=== PATIENT | female | born 1950 | race African-American/Black ===

== ENCOUNTER 2016-08-14 18:49 | Emergency (ER) | payer OTHER, MEDICARE ==
[2016-08-14 18:57] VITALS: BMI 27.6
--- NOTE | 2016-08-14 19:38 | PDOC ---
History of Present Illness - General History Source: Patient Exam Limitations: No Limitations - History of Present Illness Initial Comments: 08/14/16 20:45 The patient is a 66 year old female with significant past medical history of diabetes who presents to the ED for left facial palsy that began earlier today. Patient reports positive sick contacts 2 days ago while she was visiting her PMD in his office. States the following day she noted some mild swelling near her left eye and her left eye became red, itchy, tearful and felt a burning sensation throughout the day. She also reports a mild headache. Patient reports today she developed left facial palsy and states the swelling near her left eye increased and she was unable to close her eyes. Denies loss of sensation, dizziness, blurry vision, or slurred speech. She also reports one episode of nausea and vomiting earlier this morning. The patient denies fever, chills, diaphoresis, cough, SOB, chest pain, palpitations, abdominal pain and diarrhea. Allergies: lactose, methylprednisolone acetate, sulfa, metronidazole HCl, levofloxacin Social History: No alcohol, tobacco, or drug use reported. Past Surgical History: cholecystectomy, bilateral rotator cuff sx PCP: Dr. Neel Fitzpatrick <Regla Rabago - Last Filed: 08/14/16 22:01> <Kaleigh Zimmerman - Last Filed: 08/15/16 04:45> - General Chief Complaint: Facial Droop Stated Complaint: LEFT FACE SWELLING Time Seen by Provider: 08/14/16 19:37 Past History <Regla Rabago - Last Filed: 08/14/16 22:01> - Past Medical History Anemia: No Asthma: No Cancer: No Cardiac Disorders: No CVA: No COPD: No CHF: No Dementia: No Diabetes: Yes Disorders: No HTN: No Hypercholesterolemia: No Liver Disease: No Suicide Attempt (Hx): No Seizures: No Thyroid Disease: No - Surgical History Cholecystectomy: Yes Orthopedic Surgery: Yes (Bilateral rotated cuff Sx, both feet) - Immunization History Td Vaccination: Yes Immunization Up to Date: Yes - Psycho/Social/Smoking Cessation Hx Anxiety: No Suicidal Ideation: No Smoking Status: No Smoking History: Never smoked Years of Tobacco Use: 0 Have you smoked in the past 12 months: No Number of Cigarettes Smoked Daily: 0 Cigars Per Day: 0 Hx Alcohol Use: No Drug/Substance Use Hx: No Substance Use Type: None Hx Substance Use Treatment: No <Kaleigh Zimmerman - Last Filed: 08/15/16 04:45> - Past Medical History Allergies/Adverse Reactions: Allergies Allergy/AdvReac Type Severity Reaction Status Date / Time lactose Allergy Mild Verified 08/14/16 18:54 methylprednisolone acetate Allergy Verified 08/14/16 18:54 [From Depo-Medrol] Sulfa (Sulfonamide Allergy Verified 08/14/16 18:54 Antibiotics) Metronidazole HCl AdvReac Mild Rash, Verified 08/14/16 18:54 [From Flagyl] itching levofloxacin [Levofloxacin] AdvReac Hives Verified 08/14/16 18:54 Home Medications: Ambulatory Orders Canagliflozin [Invokana] 100 mg PO DAILY 12/10/15 Dextran 70/Hypromellose [Artificial Tears Eye Drops] 1 applic OS Q3H6XD #15 ml 08/14/16 Prednisone [Deltasone -] 3 tab PO DAILY #15 tablet 08/14/16 Valacyclovir HCl [Valtrex] 1,000 mg PO TID #21 tablet 08/14/16 Review of Systems - Review of Systems Able to Perform ROS?: Yes Comments:: 08/14/16 20:45 CONSTITUTIONAL: Absent: fever, no chills, no fatigue EYES: +left eye swelling, redness, itchy and tearful Absent: visual changes ENT: Absent: ear pain, no sore throat CARDIOVASCULAR: Absent: chest pain, no palpitations RESPIRATORY: Absent: cough, no SOB GI: +nausea, vomiting Absent: abdominal pain, no constipation, no diarrhea GENITOURINARY: Absent: dysuria, no frequency, no hematuria MUSCULOSKELETAL: Absent: back pain, no arthralgia, no myalgia SKIN: Absent: rash NEURO: +left facial palsy, headache Absent: focal weakness, dizziness, unsteady gait, seizure, mental status changes, bladder or bowel incontinence <Regla Rabago - Last Filed: 08/14/16 22:01> *Physical Exam - Vital Signs Last Vital Signs Temp Pulse Resp BP Pulse Ox 98.5 F 79 20 178/83 100 08/14/16 18:50 08/14/16 18:50 08/14/16 18:50 08/14/16 18:50 08/14/16 18:50 - Physical Exam Comments: 08/14/16 22:01 GENERAL: Well-appearing, well-nourished. No apparent distress. HEENT: Normocephalic, atraumatic. PERRL, EOM intact. Left eye irritation secondary to the inability of closing the eye and rubbing CARDIOVASCULAR: Normal S1, S2. Regular rate and rhythm. PULMONARY: Clear to auscultation bilaterally. ABDOMEN: Soft, non-distended, non-tender. EXTREMITIES: Normal ROM in all four extremities. No gross deformities. SKIN: Warm, dry. No rash NEUROLOGICAL: Alert, awake, appropriate. Left-sided 7th facial nerve palsy. Remainder of the cranial nerves are intact. No loss of sensation. Normal speech. Moving all extremities. <Relga Rabago - Last Filed: 08/14/16 22:01> - Vital Signs Last Vital Signs Temp Pulse Resp BP Pulse Ox 98.5 F 79 20 178/83 100 08/14/16 18:50 08/14/16 18:50 08/14/16 18:50 08/14/16 18:50 08/14/16 18:50 <Kaleigh Zimmerman - Last Filed: 08/15/16 04:45> ED Treatment Course - LABORATORY CBC & Chemistry Diagram: 08/14/16 20:42 08/14/16 20:42 - RADIOLOGY Radiograph Interpretation: 08/14/16 21:21 EXAM: CT head without contrast Reviewed by Imaging assistant director of plant operations: FINDINGS: 1. There is no evidence of an acute intracranial process, intracranial hemorrhage or mass effect. 2. The ventricles are normal size. 3. The visualized portions of the orbits, paranasal and mastoid sinuses are unremarkable. <Regla Rabago - Last Filed: 08/14/16 22:01> - LABORATORY CBC & Chemistry Diagram: 08/14/16 20:42 08/14/16 20:42 <Kaleigh Zimmerman - Last Filed: 08/15/16 04:45> Medical Decision Making - Medical Decision Making 08/14/16 21:09 Patient Name: Crystal Alfred THIS IS A PRELIMINARY REPORT FROM [facility] EXAM: CT head without contrast IMAGES: 144 DATE OF SERVICE: 2016-08-14 20:21: 50.0 HISTORY:Facial droop COMPARISON: None. FINDINGS: 1. There is no evidence of an acute intracranial process, intracranial hemorrhage or mass effect. 2. The ventricles are normal size. 3. The visualized portions of the orbits, paranasal and mastoid sinuses are unremarkable. THIS DOCUMENT HAS BEEN ELECTRONICALLY SIGNED 08/15/16 04:41 Pt comes with facial droop that began today in the AM and patient comes tonight for evaluation. She has a headache. She is 66 YO. Exam consistent with a Burton palsy. However I will still get a CT head on account of the headache. Pt's CT is normal. Labs are normal. She will be treated with antivirals and artificail tears. She will follow with her PMD. 08/15/16 04:44 <Kaleigh Zimmerman - Last Filed: 08/15/16 04:45> *DC/Admit/Observation/Transfer - Attestations Scribe Attestion: 08/14/16 20:45 Documentation prepared by Regla Rabago, acting as medical payment poster for Kaleigh Zimmerman MD/DO. <Regla Rabago - Last Filed: 08/14/16 22:01> - Discharge Dispostion Admit: No <Kaleigh Zimmerman - Last Filed: 08/15/16 04:45> Diagnosis at time of Disposition: Quinonez palsy - Discharge Dispostion Disposition: HOME Condition at time of disposition: Stable - Prescriptions Prescriptions: Dextran 70/Hypromellose [Artificial Tears Eye Drops] 1 applic OS Q3H6XD #15 ml Prednisone [Deltasone -] 3 tab PO DAILY #15 tablet Valacyclovir HCl [Valtrex] 1,000 mg PO TID #21 tablet - Referrals Referrals: Neel Fitzpatrick MD [Primary Care Provider] - - Patient Instructions Printed Discharge Instructions: DI for Quinonez's Palsy
[2016-08-14] MEDS ORDERED: valACYclovir HCL 1000 MG TABLET PO ONE (20:28)
[2016-08-14] MEDS ORDERED: valACYclovir HCL 500 MG TABLET (FP) PO ONE (20:30)
[2016-08-14] MEDS ORDERED: predniSONE 20 MG TABLET (UD) PO ONE (20:43)
[2016-08-14] MEDS ORDERED: predniSONE 20 MG TABLET (UD) ONE (20:46)
[2016-08-14 20:50] LABS: BASOPHIL 0.3 % (0-2.0); EOSINOPHIL 1.8 % (0-4.5); MCH 31.8 pg (25.7-33.7); MEAN CELL VOLUME 93.5 fl (80-96); MEAN PLT VOLUME 8.5 fl (7.5-11.1); NEUTROPHILS 63.8 % (42.8-82.8); PLATELET COUNT 280 K/MM3 (134-434); RDW 13.1 % (11.6-15.6); WHITE BLOOD COUNT 8.8 K/mm3 (4.0-10.0)
[2016-08-14 21:04] LABS: INR 1.05 (0.82-1.09); PROTHROMBIN TIME (PATIENT) 11.6 SEC (9.98-11.88)
[2016-08-14 21:07] LABS: ACTIVATED PTT 36.7 SECONDS (26.9-34.4)
[2016-08-14 21:13] LABS: ALBUMIN 3.8 g/dl (3.4-5.0); ANION GAP 7 (8-16); BILIRUBIN,TOTAL 0.8 mg/dL (0.2-1.0); CALCIUM 8.6 mg/dL (8.5-10.1); CO2 30 mmol/L (21-32); CREATININE 0.7 mg/dL (0.55-1.02); GLUCOSE,RANDOM 165 mg/dL (74-106); SGOT/AST 19 U/L (15-37); SGPT/ALT 29 U/L (12-78); TOT PROT 6.8 g/dl (6.4-8.2)
[2016-08-14 21:14] LABS: ALK PHOS 73 U/L (45-117)
[2016-08-14] MEDS ORDERED: ACETAMINOPHEN 325 MG TABLET (FP) PO ONE (21:15)
[2016-08-14] MEDS ORDERED: ACETAMINOPHEN 325 MG TABLET (FP) ONE (21:36)
[2016-08-14 21:49] VITALS: BP 157/62; PULSE 67; TEMP 98
--- NOTE | 2016-08-15 13:32 | EKG ---
Test Reason : Blood Pressure : / mmHG Vent. Rate : 061 BPM Atrial Rate : 061 BPM P-R Int : 114 ms QRS Dur : 084 ms QT Int : 454 ms P-R-T Axes : 031 -10 030 degrees QTc Int : 457 ms NORMAL SINUS RHYTHM NORMAL ECG WHEN COMPARED WITH ECG OF 03-NOV-2012 04:16, NO SIGNIFICANT CHANGE WAS FOUND Confirmed by SILVINO ANSARI MD ([id number]) on 08/15/2016 1:32:04 PM Referred By: Confirmed By:SILVINO ANSARI MD
== END 2016-08-14 21:51 | disposition home or self-care (01) ==
LOC: JER 18:49
DX: G51.0 Bell's palsy (principal)
CPT/HCPCS: 36415; 70450-TC; 71020-TC; 80053; 85025; 85610; 85730; 93005; 93010; 99283-25

== ENCOUNTER 2016-08-30 05:59 | Day surgery (SDC) | payer OTHER, MEDICARE ==
[2016-08-16 12:07] VITALS: BMI 29.2
--- NOTE | 2016-08-29 09:10 | HP ---
Satellite [facility] - Chief Complaint Chief Complaint: right knee pain - Past Medical History Allergies/Adverse Reactions: Allergies Allergy/AdvReac Type Severity Reaction Status Date / Time levofloxacin [Levofloxacin] Allergy Severe Hives Verified 08/16/16 11:47 methylprednisolone acetate Allergy Severe Swelling Verified 08/16/16 11:47 [From Depo-Medrol] Metronidazole HCl Allergy Severe Rash, Verified 08/16/16 11:47 [From Flagyl] itching Sulfa (Sulfonamide Allergy Severe Rash Verified 08/16/16 11:47 Antibiotics) lactose Allergy Mild STOMACH Verified 08/16/16 11:47 PAIN - Current Medications Current Medications: Home Medications Medication Instructions Recorded Canagliflozin [Invokana] 100 mg PO DAILY 12/10/15 Dextran 70/Hypromellose 1 applic OS Q3H6XD #15 ml 08/14/16 [Artificial Tears Eye Drops] Prednisone [Deltasone -] 3 tab PO DAILY #15 tablet 08/14/16 Valacyclovir HCl [Valtrex] 1,000 mg PO TID #21 tablet 08/14/16 Lipase/Protease/Amylase [Creon Dr 1 each PO TID 08/16/16 24,000 Units Capsule] Satellite Physical Exam - Physical Examination General Appearance: Well Nourished, Well Developed, Alert & Oriented x3 ENT: Clear Lung: Normal air movement Heart: Regular rate & rhythm Extremities: Other (right knee- + swelling, + ttp medially, decr rom, nvi xrays show severe medial djd) Neurological: Intact, Alert, Oriented Satellite Impression/Plan - Impression/Plan Impression: right knee medial djd Operative Procedure: right medial darnell ukr Date to be Performed: 08/30/16
[2016-08-30] MEDS ORDERED: CEFAZOLIN 1 GM/D5W 50 ML IVPB ONE (06:14)
[2016-08-30] MEDS ORDERED: CELECOXIB 200 MG CAPSULE PO ONE (06:14)
[2016-08-30] MEDS ORDERED: TRANEXAMIC ACID 1000 MG/10 ML VIAL IVPUSH ONE (06:14)
[2016-08-30] MEDS ORDERED: GABAPENTIN 300 MG CAPSULE (FP) PO ONE (06:14)
[2016-08-30] MEDS ORDERED: oxyCODONE HCL 10 MG SUSTAINED ACTING TABLET PO ONE (06:14)
[2016-08-30] MEDS ORDERED: ROPIVICAINE 0.2%/MORPH PF/KETOROLAC - 51ML DISP.SYRINGE IA ONE ×3 (06:14→09:32)
[2016-08-30] MEDS ORDERED: oxyCODONE HCL 10 MG SUSTAINED ACTING TABLET ONE (06:17)
[2016-08-30] MEDS ORDERED: GABAPENTIN 300 MG CAPSULE (FP) ONE (06:17)
[2016-08-30] MEDS ORDERED: CELECOXIB 200 MG CAPSULE ONE (06:18)
[2016-08-30] MEDS ORDERED: DEXAMETHASONE SOD PHOSPHATE/PF 10 MG/ML SDV ONE (06:49)
[2016-08-30] MEDS ORDERED: MIDAZOLAM HCL 2 MG/2 ML SINGLE DOSE VIAL ONE ×2 (06:50→07:25)
[2016-08-30] MEDS ORDERED: ROPIVACAINE HCL 0.5% 30ML VIAL ONE (06:50)
[2016-08-30] MEDS ORDERED: THROMBIN (BOVINE) 5,000 UNIT VIAL TP ONE ×2 (07:06→09:33)
[2016-08-30] MEDS ORDERED: GELATIN, ABSORBABLE 100 EACH SPONGE TP ONE (07:06)
[2016-08-30] MEDS ORDERED: ceFAZolin SODIUM 1 GM VIAL ONE ×2 (07:06→07:26)
[2016-08-30] MEDS ORDERED: PROPOFOL 20 ML ONE (07:25)
[2016-08-30] MEDS ORDERED: TRANEXAMIC ACID 1000 MG/10 ML VIAL ONE (07:26)
[2016-08-30] MEDS ORDERED: SUCCINYLCHOLINE CHLORIDE 200 MG/10 ML VIAL ONE (07:26)
[2016-08-30] MEDS ORDERED: GELATIN, ABSORBABLE 12-7MM EACH SPONGE TP ONE (09:15)
--- NOTE | 2016-08-30 09:53 | OP ---
Operative Note - Note: Operative Date: 08/30/16 (giovanni) Pre-Operative Diagnosis: right knee medial djd Operation: right medial darnell ukr Post-Operative Diagnosis: Same as Pre-op Surgeon: Javi Resendez Photographic Laboratory Technician: Wing Wild Anesthesiologist/APARTMENT RENTAL CLERK: Jd Bardales Anesthesia: Spinal, Local Specimens Removed: bone fragments Estimated Blood Loss (mls): 100 Operative Report Dictated: Yes
[2016-08-30] MEDS ORDERED: LACTATED RINGERS SOLUTION 1,000 ML IV SCH (10:00)
[2016-08-30] MEDS ORDERED: PATIENT'S OWN MEDICATION (NON-FORMULARY) (Canagliflozin [Invokana] 100 MG) PO SCH (10:00)
[2016-08-30] MEDS ORDERED: MAG HYDROX/AL HYDROX/SIMETH 30 ML UNIT-DOSE CUP PO PRN (10:16)
[2016-08-30] MEDS ORDERED: ONDANSETRON 4 MG/2 ML VIAL IVPB PRN (10:17)
[2016-08-30] MEDS ORDERED: PROMETHAZINE HCL 25 MG/1 ML VIAL IVPUSH PRN (10:29)
[2016-08-30] MEDS ORDERED: oxyCODONE HCL 5 MG TABLET PO PRN (10:29)
[2016-08-30] MEDS ORDERED: ACETAMINOPHEN 325 MG TABLET (FP) PO SCH (10:30)
[2016-08-30] MEDS: ACETAMINOPHEN 1000 MG/100 ML VIAL (NON FORMULARY) IVPB ONE ×2 (10:40→10:48)
[2016-08-30] MEDS: PANTOPRAZOLE 40 MG TABLET (FP) PO SCH (10:48)
[2016-08-30] MEDS ORDERED: ONDANSETRON 4 MG/2 ML VIAL IVPUSH PRN (10:48)
[2016-08-30] MEDS: SENNOSIDES/DOCUSATE COMBO (SENNA PLUS) TABLET (UD) PO SCH ×2 (10:48→21:16)
[2016-08-30] MEDS: MULTIVITAMINS (DAILY MVI) TABLET (FP) PO SCH (10:48)
[2016-08-30] MEDS: LACTATED RINGERS SOLUTION 1,000 ML IV SCH (10:49)
[2016-08-30] MEDS ORDERED: INSULIN (NOVOLOG) ASPART 100 UNITS/ML 10ML VIAL ONE (11:57)
[2016-08-30] MEDS ORDERED: PATIENT'S OWN MEDICATION (NON-FORMULARY) (Dextran 70/Hypromellose [Artificial Tears Eye Dr OS SCH (12:00)
[2016-08-30] MEDS: INSULIN SLIDING SCALE (NOVOLOG) 1 VIAL SQ SCH ×3 (12:00→21:45)
[2016-08-30] MEDS: ACETAMINOPHEN 325 MG TABLET (FP) PO SCH ×2 (12:58→18:43)
[2016-08-30] MEDS: CEFAZOLIN 1 GM/D5W 50 ML IVPB SCH (16:54)
[2016-08-30] MEDS: GABAPENTIN 300 MG CAPSULE (FP) PO SCH (21:16)
[2016-08-30] MEDS: oxyCODONE HCL 10 MG SUSTAINED ACTING TABLET PO SCH (21:17)
[2016-08-30] MEDS: oxyCODONE HCL 5 MG TABLET PO PRN (21:18)
[2016-08-31] MEDS: CEFAZOLIN 1 GM/D5W 50 ML IVPB SCH
[2016-08-31 06:10] VITALS: BP 113/68; PULSE 68; TEMP 98.4
[2016-08-31] MEDS: ACETAMINOPHEN 325 MG TABLET (FP) PO SCH ×2 (06:22)
[2016-08-31] MEDS: oxyCODONE HCL 5 MG TABLET PO PRN ×2 (06:24→10:47)
[2016-08-31] MEDS ORDERED: INSULIN (NOVOLOG) ASPART 100 UNITS/ML 10ML VIAL ONE (06:59)
[2016-08-31] MEDS: INSULIN SLIDING SCALE (NOVOLOG) 1 VIAL SQ SCH (07:03)
[2016-08-31] MEDS ORDERED: ASPIRIN 325 MG TABLET PO SCH (08:00)
--- NOTE | 2016-08-31 09:45 | PN ---
Progress Note (short form) - Note Progress Note: Ortho Pt seen and examined s/p right medial darnell ukr pod #1 Selected Entries 08/31/16 06:00 Temperature 98.4 F Pulse Rate 68 Respiratory 18 Rate Blood Pressure 113/68 dressing c/d/i, calf soft, nt rom 0-80, nvi a/p PT dvt ppx pain control d/c home today f/u in 1 week
--- NOTE | 2016-08-31 09:46 | DS ---
Physical Examination Vital Signs: Vital Signs Temperature 98.4 F 08/31/16 06:00 Pulse Rate 68 08/31/16 06:00 Respiratory Rate 18 08/31/16 06:00 Blood Pressure 113/68 08/31/16 06:00 O2 Sat by Pulse Oximetry (%) 94 L 08/31/16 06:00 Discharge Summary Reason For Visit: OSTEOARTHRITIS Procedures: Principal: s/p right medial darnell ukr Hospital Course: admitted for elective right medial darnell ukr, uneventful post-op, stable for d/c Condition: Good - Instructions Diet, Activity, Other Instructions: Post-op Instructions-Partial Knee Replacement Call the office for a follow-up appointment in 1 week - [phone] Aspirin 325mg daily for 6 weeks. Pain medication was sent into your pharmacy. Apply Graduated Compression Stockings (TEDs) to both lower extremities- remove daily for hygiene ONLY Apply Sequential Compression Device (SCDs) to both Lower extremities remove for PT and hygiene ONLY Apply cold packs to affected area for 15 minutes every 2 hours. Physical Therapist will come to your home for the first 5 days. You will be set up with outpatient PT at your first post-operative visit. Patient may ambulate as tolerated-encourage self care (at least every 2-3 hours while awake) with walker or cane Maintain Aquacel (waterproof) dressing to operative wound (will be removed by surgeon at first office visit) Shower with Aquacel dressing in place-if Aquacel integrity compromised, remove and apply dry sterile dressing and notify Orthopedist. DO NOT SHOWER unless Orthopedists approves without Aquacel dressing CONTACT THE OFFICE FOR ANY CHANGE IN YOUR CONDITION (for example-fever greater than 102 degrees,excessive bleeding from operative site, purulent drainage, severe swelling or pain) GO TO THE EMERGENCY ROOM IF THERE IS A MEDICAL EMERGENCY Knee Precautions: * Keep a rolled towel under affected heel while in bed or chair (to keep knee in extension) * Keep affected leg elevated except during mealtimes * DO NOT PLACE PILLOW UNDER AFFECTED KNEE * If you have any questions, please do not hesitate to call the office - . Referrals: Javi Resendez MD [Staff Physician] - Disposition: VNS/HOME HEALTH CARE - Home Medications Comprehensive Discharge Medication List: Ambulatory Orders Canagliflozin [Invokana] 100 mg PO DAILY 12/10/15 Dextran 70/Hypromellose [Artificial Tears Eye Drops] 1 applic OS Q3H6XD #15 ml 08/14/16 Lipase/Protease/Amylase [Naomi Carrasco 24,000 Units Capsule] 1 each PO TID 08/16/16 Aspirin [ASA -] 325 mg PO DAILY@0800 tablet 08/30/16 Oxycodone HCl/Acetaminophen [Percocet 5-325 mg Tablet -] 1 - 2 tab PO Q6H #50 tab MDD 8 08/30/16
[2016-08-31] MEDS: oxyCODONE HCL 10 MG SUSTAINED ACTING TABLET PO SCH (10:46)
[2016-08-31] MEDS: SENNOSIDES/DOCUSATE COMBO (SENNA PLUS) TABLET (UD) PO SCH (10:46)
[2016-08-31] MEDS: GABAPENTIN 300 MG CAPSULE (FP) PO SCH (10:46)
[2016-08-31] MEDS: PANTOPRAZOLE 40 MG TABLET (FP) PO SCH (10:47)
[2016-08-31] MEDS: MULTIVITAMINS (DAILY MVI) TABLET (FP) PO SCH (10:47)
[2016-08-31] MEDS: LACTATED RINGERS SOLUTION 1,000 ML IV SCH (10:48)
--- NOTE | 2016-08-31 11:19 | SPEC ---
DATE OF OPERATION: 08/30/2016 OPERATION: Right medial unicompartmental knee replacement with robotic-assisted navigation (MAKOplasty) and patelloplasty. PREOPERATIVE DIAGNOSIS: Degenerative joint disease, right knee. POSTOPERATIVE DIAGNOSIS: Degenerative joint disease, right knee. SURGICAL ATTENDING: Javi Resendez M.D. ANESTHESIA: Spinal and regional. CLOSURE: Medial FRANCHESKA compartments with a 3 femur, 3 tibia, 8 polyethylene, No. 1 Vicryl to fascia, 0 subcutaneous and 2-0 Monocryl subcuticular, 3-0 Monocryl subcuticular with skin glue for skin, 4-0 undyed Vicryl for pin sites. ESTIMATED BLOOD LOSS: Negligible. TOURNIQUET TIME: Approximately 20 minutes. COMPLICATIONS: None. CONDITION: To recovery room stable. PROCEDURE: Patient was taken to the operating room. Spinal and femoral block anesthesia was administered by the anesthesiologist. IV Kefzol and TXA were administered prophylactically prior to the case. A well-padded pneumatic tourniquet was placed on the right proximal thigh. The right lower extremity was prepped and draped in the usual sterile fashion. A 6 cm longitudinal incision was made along the medial retinaculum from mid patella toward the tibial tubercle. Hemostasis was achieved using Bovie cautery. Sharp dissection was carried down to the level of the capsule, which was opened the entire length of incision. Subperiosteal dissection in the anterior medial proximal tibia. Periosteal elevator was used to facilitate this dissection. Partial fat pad excision was performed to gain visualization. A femoral and tibial checkpoint were malleted into place. Two bicortical pins were drilled through small stab incisions into the femur, 1 handbreadth above the patella. Two bicortical pins were drilled into the tibia 1 handbreadth below the tibial tubercle through small stab incisions as well. To these, pins were attached to clamps and the navigation arrays. The knee was then registered with the navigation device by ascertaining the center of rotation of the hip, both the medial and lateral malleoli, at approximately 50 points on the tibia and femur. Registration was within FRANCHESKA parameters, being less than half a millimeter. At this time, the medial osteophytes on both the femur and tibia were removed by use of rongeur. The knee was taken through a range of motion and with stressing the medial compartment open at 0, 30, 60, 90 and 120 degrees. Stress points were obtained in order to develop a flexion/extension and a tightness/looseness graph. The robotic navigation device obtained a virtual tracking of the knee and found that the traction was in excellent position. The components were manipulated virtually in order to obtain a flexion/extension; tightness/looseness graph was then +/- 1 mm. The robot was then brought into the field and registered with the navigation device. The robot was then used to vitor the bone on both the femur and the tibia to the specifications and direction of the navigation device. All excess bone, osteophytes, and cartilage were removed, including the medial meniscus. Care was taken to protect the MCL throughout the case. The trial components were then placed into the knee with the appropriate polyethylene plastic trial liner. The knee was taken through a range of motion and the graph on the navigation device was then used again to confirm ideal position of the components and ideal tightness/looseness of the components. The trial components were removed, along with the checkpoints and the array. The knee was exsanguinated with an Esmarch bandage and tourniquet inflated to 175 mmHg. The knee was post-antibiotic irrigated and then dried and then Avitene and Gelfoam were placed to aid in hemostasis. The real components were then cemented in using modern generation cement techniques with antibiotics, cement and pressurization. All excess cement was removed. The knee was thoroughly inspected to remove any excess cement and bone fragments. The real polyethylene component was then clipped into place. Range of motion revealed excellent range of motion and good tensioning throughout. The knee was post-antibiotic irrigated. The fascia was closed using 2-0 Vicryl interrupted suture. The tourniquet was deflated. Total tourniquet time was less than 30 minutes. Hemostasis was obtained. Another dose of TXA was administered. The subcutaneous layer was closed with 2-0 Vicryl, 3-0 Monocryl subcuticular for skin. A pain cocktail was infused throughout the soft tissue. The pin sites were irrigated and closed with 4-0 Vicryl and skin glue was used for all incisions. Sterile Aquacel dressing was placed on all incisions followed by a dressing from the toes to the thigh. Patient was transferred to the recovery room in stable condition. No complications. Jessa [id number]
== END 2016-08-31 11:30 | disposition home health service (06) ==
LOC: FASU 05:59 → FM/S 06:14 → FASU 08-31 11:30
PROVIDERS: ATTEND Orthopaedic Surgery
PROC: 8E0YXBZ Computer Assisted Procedure of Lower Extremity (ICD-10-PCS; 2016-08-30)
PROC: 8E0Y0CZ Robotic Assisted Procedure of Lower Extremity, Open Approach (ICD-10-PCS; 2016-08-30)
PROC: 0SRC0L9 Replacement of Right Knee Joint with Medial Unicondylar Synthetic Substitute, Cemented, Open Approach (ICD-10-PCS; principal; 2016-08-30 08:00)
DX: M17.11 Unilateral primary osteoarthritis, right knee (principal)
CPT/HCPCS: 20985; 27446; C1776; S2900; 73560-TC-RT; 94010; 94760; 97116-GP; 97162-PG

== ENCOUNTER 2016-12-25 20:22 | Emergency (ER) | payer OTHER, MEDICARE ==
[2016-12-25 20:58] VITALS: BP 161/74; PULSE 74; TEMP 98.8; BMI 27.8
[2016-12-25] MEDS ORDERED: KETOROLAC TROMETHAMINE 30 MG/1 ML VIAL IM ONE (21:49)
[2016-12-25] MEDS ORDERED: KETOROLAC TROMETHAMINE 30 MG/1 ML VIAL ONE (21:50)
--- NOTE | 2016-12-25 22:37 | PDOC ---
History of Present Illness - General Chief Complaint: Injury Stated Complaint: FALL Time Seen by Provider: 12/25/16 21:24 History Source: Patient Exam Limitations: No Limitations - History of Present Illness Initial Comments: 12/25/16 22:31 CC fall today with pain left sholder and elbow Occurred: reports: just prior to arrival Severity: reports: mild Pain Location: reports: upper extremity Method of Injury: Yes: fall Past History - Past Medical History Allergies/Adverse Reactions: Allergies Allergy/AdvReac Type Severity Reaction Status Date / Time levofloxacin [Levofloxacin] Allergy Severe Hives Verified 12/25/16 20:52 methylprednisolone acetate Allergy Severe Swelling Verified 12/25/16 20:52 [From Depo-Medrol] Metronidazole HCl Allergy Severe Rash, Verified 12/25/16 20:52 [From Flagyl] itching Sulfa (Sulfonamide Allergy Severe Rash Verified 12/25/16 20:52 Antibiotics) lactose Allergy Mild STOMACH Verified 12/25/16 20:52 PAIN Home Medications: Ambulatory Orders Canagliflozin [Invokana] 100 mg PO DAILY 12/10/15 Lipase/Protease/Amylase [Creon Dr 24,000 Units Capsule] 1 each PO TID 08/16/16 Aspirin [ASA -] 325 mg PO DAILY@0800 tablet 08/30/16 Anemia: No Asthma: No Cancer: No Cardiac Disorders: No CVA: No COPD: No CHF: No Dementia: No Diabetes: Yes GI Disorders: Yes (BENIGN 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-HAD WHIPPLE 2008,H/O COLON POLYPS) Disorders: No HTN: No Hypercholesterolemia: No Liver Disease: No Suicide Attempt (Hx): No Seizures: No Thyroid Disease: No - Surgical History Abdominal Surgery: Yes (HAD WHIPPLE 2008 DUE TO BENIGN 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) Appendectomy: No Cardiac Surgery: No Cholecystectomy: Yes Lung Surgery: No Neurologic Surgery: No Orthopedic Surgery: Yes (Bilateral rotated cuff Sx, both feet) - Immunization History Td Vaccination: Yes Immunization Up to Date: Yes - Psycho/Social/Smoking Cessation Hx Anxiety: No Suicidal Ideation: No Smoking Status: No Smoking History: Never smoked Years of Tobacco Use: 0 Have you smoked in the past 12 months: No Number of Cigarettes Smoked Daily: 0 Cigars Per Day: 0 Hx Alcohol Use: No Drug/Substance Use Hx: No Substance Use Type: None Hx Substance Use Treatment: No Review of Systems - Review of Systems Constitutional: No: Chills, Fever HEENTM: No: Symptoms Reported Respiratory: No: Symptoms reported, Cough Cardiac (ROS): No: Symptoms Reported ABD/GI: No: Symptoms Reported : No: Symptoms Reported Musculoskeletal: Yes: Symptoms Reported, Joint Pain. No: Back Pain, Muscle Pain , Neck Pain Integumentary: Yes: Symptoms Reported *Physical Exam - Vital Signs Last Vital Signs Temp Pulse Resp BP Pulse Ox 98.8 F 74 16 161/74 99 12/25/16 20:53 12/25/16 20:53 12/25/16 20:53 12/25/16 20:53 12/25/16 20:53 - Physical Exam General Appearance: Yes: Appropriately Dressed. No: Apparent Distress Neck: negative: Tender, Rigid, Tender midline Respiratory/Chest: positive: Lungs Clear. negative: Chest Tender Musculoskeletal: positive: Other (tender to shoulder, limited ROM; tender to elbow; FROM) ED Treatment Course - RADIOLOGY Radiology Studies Ordered: Category Date Time Status ELBOW-LEFT [RAD] Stat Radiology 12/25/16 21:50 Ordered SHOULDER-W/TRANS-LEFT [RAD] Stat Radiology 12/25/16 21:51 Taken - Medications Given in the ED: ED Medications Discontinued Medications Generic Name Dose Route Start Last Admin Trade Name Freq PRN Reason Stop Dose Admin Ketorolac Tromethamine 30 mg 12/25/16 21:49 12/25/16 21:54 Toradol Injection - IM 12/25/16 21:50 30 mg ONCE ONE Administration Medical Decision Making - Medical Decision Making 12/25/16 22:33 xrays of elbow and shoulder notes no fx; signicat DJD; pt will call in am for radiology reading; sling x 3 days if no fx on reading; will f/u dr resendez next week *DC/Admit/Observation/Transfer Diagnosis at time of Disposition: Left shoulder strain Qualifiers: Encounter type: initial encounter Qualified Code(s): S46.912A - Strain of unspecified muscle, fascia and tendon at shoulder and upper arm level, left arm , initial encounter Left elbow contusion Qualifiers: Encounter type: initial encounter Qualified Code(s): S50.02XA - Contusion of left elbow, initial encounter - Discharge Dispostion Disposition: HOME Condition at time of disposition: Stable Admit: No - Referrals Referrals: Neel Fitzpatrick MD [Primary Care Provider] - Javi Resendez MD [Staff Physician] - - Patient Instructions Additional Instructions: please call in am for results of xrays; wear sling - Post Discharge Activity
== END 2016-12-25 22:41 | disposition home or self-care (01) ==
LOC: JERFT 20:22
PROC: 3E0233Z Introduction of Anti-inflammatory into Muscle, Percutaneous Approach (ICD-10-PCS; principal; 2016-12-25)
DX: S46.812A Strain of other muscles, fascia and tendons at shoulder and upper arm level, left arm, initial encounter (principal); S50.02XA Contusion of left elbow, initial encounter; W01.0XXA Fall on same level from slipping, tripping and stumbling without subsequent striking against object, initial encounter; Y93.89 Activity, other specified; Y92.512 Supermarket, store or market as the place of occurrence of the external cause; Y99.8 Other external cause status
CPT/HCPCS: 73030-TC-LT; 73070-TC-LT; 99281-25

== ENCOUNTER 2017-05-11 13:17 | Emergency (ER) | payer OTHER, MEDICARE ==
[2017-05-11 13:25] VITALS: BMI 28.7
[2017-05-11] MEDS ORDERED: ACETAMINOPHEN 650 MG/20.3 ML ORAL SOLUTION (CUPS) PO ONE (13:25)
--- NOTE | 2017-05-11 15:45 | PDOC ---
History of Present Illness - General History Source: Patient Exam Limitations: No Limitations - History of Present Illness Initial Comments: 05/11/17 15:56 56 year old female with history significant for diabetes who presents to the ED complaining of approximately 1 day of nonproductive cough with associated subjective fevers, chills, generalized weakness, diffuse myalgias. She also reports nausea, "dry heaving" and 1 episode of dark, nonbloody vomiting today. No nasal congestion. No wheezing or shortness of breath. No lower extremity edema. No abdominal pain. <Rosemarie Dunham - Last Filed: 05/11/17 18:17> <Osmar Womack - Last Filed: 05/11/17 19:14> - General Chief Complaint: Cold Symptoms Stated Complaint: SOB Time Seen by Provider: 05/11/17 15:09 Past History <Rosemarie Dunham - Last Filed: 05/11/17 18:17> - Past Medical History Anemia: No Asthma: No Cancer: Yes Cardiac Disorders: No CVA: No COPD: No CHF: No DVT: No Dementia: No Diabetes: Yes GI Disorders: Yes (BENIGN 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-HAD WHIPPLE 2008,H/O COLON POLYPS) Disorders: No HTN: No Hypercholesterolemia: No Liver Disease: No Seizures: No Thyroid Disease: No - Surgical History Abdominal Surgery: Yes (HAD WHIPPLE 2008 DUE TO BENIGN 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) Appendectomy: No Cardiac Surgery: No Cholecystectomy: Yes Lung Surgery: No Neurologic Surgery: No Orthopedic Surgery: Yes (Bilateral rotated cuff Sx, both feet) - Immunization History Td Vaccination: Yes Immunization Up to Date: Yes - Suicide/Smoking/Psychosocial Hx Smoking Status: No Smoking History: Never smoked Years of Tobacco Use: 0 Have you smoked in the past 12 months: No Number of Cigarettes Smoked Daily: 0 Cigars Per Day: 0 Information on smoking cessation initiated: No Hx Alcohol Use: No Drug/Substance Use Hx: No Substance Use Type: None Hx Substance Use Treatment: No <Osmar Womack - Last Filed: 05/11/17 19:14> - Past Medical History Allergies/Adverse Reactions: Allergies Allergy/AdvReac Type Severity Reaction Status Date / Time levofloxacin [Levofloxacin] Allergy Severe Hives Verified 05/11/17 13:20 methylprednisolone acetate Allergy Severe Swelling Verified 05/11/17 13:20 [From Depo-Medrol] Metronidazole HCl Allergy Severe Rash, Verified 05/11/17 13:20 [From Flagyl] itching Sulfa (Sulfonamide Allergy Severe Rash Verified 05/11/17 13:20 Antibiotics) lactose Allergy Mild STOMACH Verified 05/11/17 13:20 PAIN Home Medications: Ambulatory Orders Lipase/Protease/Amylase [Naomi Carrasco 24,000 Units Capsule] 1 each PO TID 08/16/16 Aspirin [ASA -] 81 mg PO DAILY 02/07/17 Exenatide Microspheres [Bydureon Pen] 2 mg SQ WEEKLY 05/11/17 Omeprazole 20 mg PO BID 05/11/17 Oseltamivir Phosphate [Tamiflu] 75 mg PO BID #10 capsule 05/11/17 Review of Systems - Review of Systems Constitutional: Yes: Chills, Fever Respiratory: Yes: Cough. No: Shortness of Breath Cardiac (ROS): No: Chest Pain ABD/GI: Yes: Vomiting. No: Diarrhea : No: Dysuria Integumentary: No: Rash Neurological: No: Headache All Other Systems: Reviewed and Negative <Osmar Womack - Last Filed: 05/11/17 19:14> *Physical Exam - Vital Signs Last Vital Signs Temp Pulse Resp BP Pulse Ox 100.5 F H 109 H 22 149/75 100 05/11/17 13:21 05/11/17 13:21 05/11/17 13:21 05/11/17 13:21 05/11/17 13:21 - Physical Exam Comments: 05/11/17 15:57 GENERAL: The patient is awake, alert, and fully oriented. +milld distress. + coarse dry cough HEAD: Normal with no signs of trauma. EYES: Pupils equal, round and reactive to light, extraocular movements intact, sclera anicteric, conjunctiva clear with no pallor. ENT: Ears normal, nares patent, oropharynx clear without exudates. Moist mucous membranes. NECK: Normal range of motion, supple without lymphadenopathy, JVD, or masses. LUNGS: Breath sounds equal, clear to auscultation bilaterally. No wheeze/ crackles. HEART: Regular rate and rhythm, normal S1 and S2 without murmur or rub. ABDOMEN: +Mild epigastric discomfort to palpation. No guarding or rebound. Negative Dc's. Soft/nondistended. BS wnl. No palpable masses. No hepatosplenomegaly. EXTREMITIES: Normal range of motion, no edema. No clubbing or cyanosis. No cords, erythema, or tenderness. NEUROLOGICAL: Cranial nerves II through XII grossly intact. Normal speech, normal gait. PSYCH: Normal mood, normal affect. SKIN: Warm, Dry, normal turgor, no rashes or lesions noted. <Rosemarie Dunham - Last Filed: 05/11/17 18:17> - Vital Signs Last Vital Signs Temp Pulse Resp BP Pulse Ox 100.5 F H 109 H 22 149/75 100 05/11/17 13:21 05/11/17 13:21 05/11/17 13:21 05/11/17 13:21 05/11/17 13:21 <Osmar Womack - Last Filed: 05/11/17 19:14> Heart Score/ECG Review #1 ECG reviewed & interpreted by me at: 16:07 General ECG Interpretation: Sinus Rhythm, Normal Rate (101), Normal Intervals ( qtc prolonged 495), No acute ischemic changes <Osmar Womack - Last Filed: 05/11/17 19:14> ED Treatment Course - LABORATORY CBC & Chemistry Diagram: 05/11/17 16:15 05/11/17 16:15 - Medications Given in the ED: ED Medications Discontinued Medications Generic Name Dose Route Start Last Admin Trade Name Freq PRN Reason Stop Dose Admin Acetaminophen 650 mg 05/11/17 13:25 05/11/17 13:26 Tylenol Oral Solution - PO 05/11/17 13:26 650 mg NOW ONE Administration <Rosemarie Dunham - Last Filed: 05/11/17 18:17> - LABORATORY CBC & Chemistry Diagram: 05/11/17 16:15 05/11/17 16:15 - RADIOLOGY Radiology Studies Ordered: Category Date Time Status CHEST PA & LAT [RAD] Stat Radiology 05/11/17 15:44 Ordered - Medications Given in the ED: ED Medications Discontinued Medications Generic Name Dose Route Start Last Admin Trade Name Freq PRN Reason Stop Dose Admin Acetaminophen 650 mg 05/11/17 13:25 05/11/17 13:26 Tylenol Oral Solution - PO 05/11/17 13:26 650 mg NOW ONE Administration <Osmar Womack - Last Filed: 05/11/17 19:14> Medical Decision Making - Medical Decision Making 05/11/17 18:17 Chest x-ray, read and reviewed by Dr. Hwang, demonstrates no acute pathology. <Rosemarie Dunham - Last Filed: 05/11/17 18:17> - Medical Decision Making 05/11/17 16:34 A portion of this note was documented by scribe services under my direction. I have reviewed the details of the note, within reason, and agree with the documentation with the following case summary and management plan written by me. 66-year-old female with no severe past medical history presents with fever/ chills/body aches/cough since yesterday. One episode of vomiting but no persistent abdominal pain or diarrhea, no chest pain or shortness of breath. Received flu vaccination, no travel or known sick contacts. Low-grade fever 100.5, mild tachycardia Dry cough during exam Lungs are clear, abdomen benign, no edema 66-year-old female with nonspecific febrile illness, question influenza-like. Rule out pneumonia. Labs, influenza swab Tylenol, ibuprofen for fever/pain Chest x-ray, EKG Reassess 05/11/17 19:00 White count 13 with slight left shift, chemistries within normal limits, slightly elevated total bilirubin but normal direct bilirubin. Chest x-ray clear, influenza negative but will treat empirically with tamiflu given clinical suspicion. Feels better after antipyretics and IV fluids, ambulated in the emergency department and felt better, agrees with discharge plan. Understands return criteria, can follow-up with Dr. Fitzpatrick. <Osmar Womack - Last Filed: 05/11/17 19:14> *DC/Admit/Observation/Transfer - Attestations Scribe Attestion: 05/11/17 16:16 Documentation prepared by Rosemarie Dunham, acting as biomedical engineering aide for Osmar Womack MD. <Rosemarie Dunham - Last Filed: 05/11/17 18:17> <Osmar Womack - Last Filed: 05/11/17 19:14> Diagnosis at time of Disposition: Fever Qualifiers: Fever type: unspecified Qualified Code(s): R50.9 - Fever, unspecified Upper respiratory infection Qualifiers: URI type: unspecified URI Qualified Code(s): J06.9 - Acute upper respiratory infection, unspecified - Discharge Dispostion Disposition: HOME Condition at time of disposition: Improved - Prescriptions Prescriptions: Oseltamivir Phosphate [Tamiflu] 75 mg PO BID #10 capsule - Referrals Referrals: Neel Fitzpatrick MD [Primary Care Provider] - - Patient Instructions Printed Discharge Instructions: DI for Viral Upper Respiratory Infection -- Adult Additional Instructions: Activity as tolerated. Stay hydrated. Tylenol 1000 mg every 8 hours and/or ibuprofen 600 mg every 8 hours as needed for fever/pain. Blood tests, a chest xray, and a flu test showed no acute abnormalities. We are treating you for flu based on your symptoms - take Tamiflu as prescribed. Continue your medications as previously prescribed by your physician. You should follow up with Dr. Fitzpatrick as soon as possible regarding today's emergency department visit. Return to the emergency department for any new or concerning symptoms, particularly persistent or worsening fever, difficulty breathing, abdominal pain /vomiting/inability to have bowel movement, increasing weakness. - Post Discharge Activity
[2017-05-11] MEDS ORDERED: KETOROLAC TROMETHAMINE 30 MG/1 ML VIAL IVPUSH ONE (15:54)
[2017-05-11] MEDS ORDERED: KETOROLAC TROMETHAMINE 30 MG/1 ML VIAL ONE (16:04)
[2017-05-11] MEDS ORDERED: SODIUM CHLORIDE 1,000 ML IV ONE (16:37)
[2017-05-11 16:38] VITALS: TEMP 99.6
[2017-05-11 16:48] LABS: BASO % 0.2 % (0-2.0); EOS % 0.5 % (0-4.5); HEMATOCRIT 41.4 % (32.4-45.2); LYMPH % 4.4 % (8-40); MCH 30.9 pg (25.7-33.7); MCHC 33.9 g/dl (32.0-36.0); MEAN CELL VOLUME 91.2 fl (80-96); MEAN PLT VOLUME 8.6 fl (7.5-11.1); MONO % 5.5 % (3.8-10.2); NEUT % 89.4 % (42.8-82.8); PLATELET COUNT 311 K/MM3 (134-434); RBC 4.54 M/mm3 (3.60-5.2)
[2017-05-11 17:08] LABS: ALBUMIN 4.1 g/dl (3.4-5.0); ANION GAP 7 (8-16); BLOOD UREA NITROGEN 11 mg/dL (7-18); CALCIUM 8.7 mg/dL (8.5-10.1); CHLORIDE 100 mmol/L (98-107); CO2 28 mmol/L (21-32); GLUCOSE,RANDOM 155 mg/dL (74-106); POTASSIUM 3.7 mmol/L (3.5-5.1); SODIUM 135 mmol/L (136-145)
[2017-05-11 17:14] LABS: ALK PHOS 73 U/L (45-117); BILIRUBIN,TOTAL 2.6 mg/dL (0.2-1.0); CREATININE 0.6 mg/dL (0.55-1.02); SGOT/AST 18 U/L (15-37); SGPT/ALT 28 U/L (12-78); TOT PROT 7.1 g/dl (6.4-8.2)
[2017-05-11 20:46] LABS: URINE APPEARANCE CLEAR; URINE BILIRUBIN NEGATIVE (NEGATIVE); URINE BLOOD NEGATIVE (NEGATIVE); URINE COLOR AMBER; URINE GLUCOSE (UA) NEGATIVE (NEGATIVE); URINE KETONE TRACE (NEGATIVE); URINE LEUK ESTERASE NEGATIVE (NEGATIVE); URINE NITRITE NEGATIVE (NEGATIVE); URINE PROTEIN NEGATIVE (NEGATIVE); URINE UROBILINOGEN 4.0 E.U/dl mg/dL (0.2-1.0)
--- NOTE | 2017-05-11 21:06 | PDOC ---
*Physical Exam - Vital Signs Last Vital Signs Temp Pulse Resp BP Pulse Ox 99.6 F 94 H 18 123/78 98 05/11/17 16:37 05/11/17 16:37 05/11/17 16:37 05/11/17 16:37 05/11/17 16:37 ED Treatment Course - LABORATORY CBC & Chemistry Diagram: 05/11/17 16:15 05/11/17 16:15 - ADDITIONAL ORDERS Additional order review: Laboratory Results 05/11/17 05/11/17 05/11/17 19:40 17:31 16:15 Sodium 135 L Potassium 3.7 Chloride 100 Carbon Dioxide 28 Anion Gap 7 L BUN 11 Creatinine 0.6 Creat Clearance w eGFR > 60 Random Glucose 155 H Calcium 8.7 Total Bilirubin 2.6 H D Direct Bilirubin 0.4 H AST 18 ALT 28 Alkaline Phosphatase 73 Creatine Kinase 58 Troponin I < 0.02 Total Protein 7.1 Albumin 4.1 Urine Color Keesha Urine Appearance Clear Urine pH 5.0 Ur Specific [place] 1.021 Urine Protein Negative Urine Glucose (UA) Negative Urine Ketones Trace H Urine Blood Negative Urine Nitrite Negative Urine Bilirubin Negative Urine Urobilinogen 4.0 e.u/dl H Ur Leukocyte Esterase Negative 05/11/17 16:15 Influenza Types A,B Antigen (ANNEL) - Final Nasopharyngeal Swab - Final 05/11/17 16:15 RBC 4.54 MCV 91.2 MCHC 33.9 RDW 13.0 MPV 8.6 Neutrophils % 89.4 H D Lymphocytes % 4.4 L D Monocytes % 5.5 Eosinophils % 0.5 Basophils % 0.2 - Medications Given in the ED: ED Medications Discontinued Medications Generic Name Dose Route Start Last Admin Trade Name Dario PRN Reason Stop Dose Admin Acetaminophen 650 mg 05/11/17 13:25 05/11/17 13:26 Tylenol Oral Solution - PO 05/11/17 13:26 650 mg NOW ONE Administration Sodium Chloride 1,000 mls @ 1,000 mls/hr 05/11/17 16:37 05/11/17 16:55 Normal Saline - IV 05/11/17 17:36 1,000 mls/hr ONCE ONE Administration Ketorolac Tromethamine 30 mg 05/11/17 15:54 05/11/17 16:30 Toradol Injection - IVPUSH 05/11/17 15:55 30 mg ONCE ONE Administration Medical Decision Making - Medical Decision Making 05/11/17 21:01 Sign-out received from outgoing Emergency Physician Dr. Womack Pt interviewed and examined Ancillary studies reviewed Case discussed in detail with oncoming Emergency Physician including history, physical exam and ancillary studies. CBC, BMP 05/11/17 16:15 05/11/17 16:15 CMP Sodium 135 mmol/L (136-145) L 05/11/17 16:15 Potassium 3.7 mmol/L (3.5-5.1) 05/11/17 16:15 Chloride 100 mmol/L (98-107) 05/11/17 16:15 Carbon Dioxide 28 mmol/L (21-32) 05/11/17 16:15 Anion Gap 7 (8-16) L 05/11/17 16:15 BUN 11 mg/dL (7-18) 05/11/17 16:15 Creatinine 0.6 mg/dL (0.55-1.02) 05/11/17 16:15 Creat Clearance w eGFR > 60 (>60) 05/11/17 16:15 Random Glucose 155 mg/dL (74-106) H 05/11/17 16:15 Calcium 8.7 mg/dL (8.5-10.1) 05/11/17 16:15 Total Bilirubin 2.6 mg/dL (0.2-1.0) H D 05/11/17 16:15 Direct Bilirubin 0.4 mg/dL (0.0-0.2) H 05/11/17 17:31 AST 18 U/L (15-37) 05/11/17 16:15 ALT 28 U/L (12-78) 05/11/17 16:15 Alkaline Phosphatase 73 U/L (45-117) 05/11/17 16:15 Creatine Kinase 58 IU/L (26-192) 05/11/17 16:15 Troponin I < 0.02 ng/ml (0.00-0.05) 05/11/17 16:15 Total Protein 7.1 g/dl (6.4-8.2) 05/11/17 16:15 Albumin 4.1 g/dl (3.4-5.0) 05/11/17 16:15 Urine Test Results Urine Color Keesha 05/11/17 19:40 Urine Appearance Clear 05/11/17 19:40 Urine pH 5.0 (5.0-8.0) 05/11/17 19:40 Ur Specific [place] 1.021 (1.001-1.035) 05/11/17 19:40 Urine Protein Negative (NEGATIVE) 05/11/17 19:40 Urine Glucose (UA) Negative (NEGATIVE) 05/11/17 19:40 Urine Ketones Trace (NEGATIVE) H 05/11/17 19:40 Urine Blood Negative (NEGATIVE) 05/11/17 19:40 Urine Nitrite Negative (NEGATIVE) 05/11/17 19:40 Urine Bilirubin Negative (NEGATIVE) 05/11/17 19:40 Ur Leukocyte Esterase Negative (NEGATIVE) 05/11/17 19:40 Labs reviewed. Influenza negative. Chest xray reviewed. NO acute infiltrates. Pt reports feeling better. Likely viral syndrome. Supportive care and follow up with PMD. I discussed the physical exam findings, ancillary test results and final diagnoses with the patient. I answered all of the patient's questions. The patient was satisfied with the care received and felt comfortable with the discharge plan and treatment plan. The patient will call their primary care physician within 24 hours to arrange follow-up and will return to the Emergency Department with any new, persistant or worsening symptoms. *DC/Admit/Observation/Transfer Diagnosis at time of Disposition: Fever Qualifiers: Fever type: unspecified Qualified Code(s): R50.9 - Fever, unspecified Upper respiratory infection Qualifiers: URI type: unspecified URI Qualified Code(s): J06.9 - Acute upper respiratory infection, unspecified - Discharge Dispostion Disposition: HOME Condition at time of disposition: Improved - Prescriptions Prescriptions: Oseltamivir Phosphate [Tamiflu] 75 mg PO BID #10 capsule - Referrals Referrals: Neel Fitzpatrick MD [Primary Care Provider] - - Patient Instructions Printed Discharge Instructions: DI for Viral Upper Respiratory Infection -- Adult Additional Instructions: Activity as tolerated. Stay hydrated. Tylenol 1000 mg every 8 hours and/or ibuprofen 600 mg every 8 hours as needed for fever/pain. Blood tests, a chest xray, and a flu test showed no acute abnormalities. We are treating you for flu based on your symptoms - take Tamiflu as prescribed. Continue your medications as previously prescribed by your physician. You should follow up with Dr. Fitzpatrick as soon as possible regarding today's emergency department visit. Return to the emergency department for any new or concerning symptoms, particularly persistent or worsening fever, difficulty breathing, abdominal pain /vomiting/inability to have bowel movement, increasing weakness. - Post Discharge Activity
[2017-05-11 21:09] VITALS: BP 138/77; PULSE 89
[2017-05-11] MEDS ORDERED: OSELTAMIVIR PHOSPHATE 75 MG CAPSULE PO ONE (21:16)
--- NOTE | 2017-05-12 10:09 | EKG ---
Test Reason : Blood Pressure : / mmHG Vent. Rate : 101 BPM Atrial Rate : 101 BPM P-R Int : 134 ms QRS Dur : 080 ms QT Int : 382 ms P-R-T Axes : 053 -22 062 degrees QTc Int : 495 ms SINUS TACHYCARDIA OTHERWISE NORMAL ECG WHEN COMPARED WITH ECG OF 14-AUG-2016 21:07, VENT. RATE HAS INCREASED BY 40 BPM Confirmed by ADI MORRISSEY MD ([id number]) on 05/12/2017 10:09:18 AM Referred By: Confirmed By:ADI MORRISSEY MD
== END 2017-05-11 21:18 | disposition home or self-care (01) ==
LOC: JER 13:17
PROC: 3E0337Z Introduction of Electrolytic and Water Balance Substance into Peripheral Vein, Percutaneous Approach (ICD-10-PCS; principal; 2017-05-11)
PROC: 3E0333Z Introduction of Anti-inflammatory into Peripheral Vein, Percutaneous Approach (ICD-10-PCS; 2017-05-11)
DX: J06.9 Acute upper respiratory infection, unspecified (principal)
CPT/HCPCS: 36415; 71046-TC; 80053; 81003; 82248; 82550; 84484; 85025; 87804; 93005; 93010; 99283-25

== ENCOUNTER 2018-04-14 15:56 | Emergency (ER) | payer BC, MEDICARE ==
[2018-04-14 16:02] VITALS: BP 164/60; PULSE 64; TEMP 98; BMI 29.6
[2018-04-14] MEDS ORDERED: ACETAMINOPHEN 500 MG TABLET (FP) PO ONE (17:14)
[2018-04-14 17:30] LABS: BASO % 0.3 % (0-2.0); EOS % 1.7 % (0-4.5); HEMATOCRIT 42.6 % (32.4-45.2); HEMOGLOBIN 15.2 GM/dL (10.7-15.3); LYMPH % 26.9 % (8-40); MCH 32.9 pg (25.7-33.7); MCHC 35.6 g/dl (32.0-36.0); MEAN CELL VOLUME 92.3 fl (80-96); MEAN PLT VOLUME 8.5 fl (7.5-11.1); MONO % 6.3 % (3.8-10.2); NEUT % 64.8 % (42.8-82.8); PLATELET COUNT 324 K/MM3 (134-434); RBC 4.62 M/mm3 (3.60-5.2); RDW 13.2 % (11.6-15.6); WHITE BLOOD COUNT 8.9 K/mm3 (4.0-10.0)
[2018-04-14] MEDS ORDERED: ACETAMINOPHEN 325 MG TABLET (FP) ONE (17:30)
[2018-04-14 17:56] LABS: ALBUMIN 4.2 g/dl (3.4-5.0); ALK PHOS 83 U/L (45-117); ANION GAP 7 MMOL/L (8-16); BILIRUBIN,TOTAL 1.9 mg/dL (0.2-1); BLOOD UREA NITROGEN 14 mg/dL (7-18); CHLORIDE 104 mmol/L (98-107); CO2 28 mmol/L (21-32); CREATININE 0.6 mg/dL (0.55-1.3); GLUCOSE,RANDOM 172 mg/dL (74-106); POTASSIUM 3.8 mmol/L (3.5-5.1); SGOT/AST 23 U/L (15-37); SGPT/ALT 31 U/L (13-61); SODIUM 138 mmol/L (136-145); TOT PROT 7.5 g/dl (6.4-8.2)
--- NOTE | 2018-04-14 19:19 | PDOC ---
History of Present Illness - General Chief Complaint: Back Pain Stated Complaint: Rt. arm, back and leg pain Time Seen by Provider: 04/14/18 16:50 History Source: Patient Exam Limitations: No Limitations - History of Present Illness Initial Comments: 04/14/18 18:54 CHIEF COMPLAINT: Lower back pain HISTORY OF PRESENT ILLNESS: This is a 67-year-old woman with history of pancreatic cancer status post Whipple presents emergency department for right lower back pain radiating to her hip and shooting down the posterior surface of her leg. She denies any neurosensory deficits, incontinence of bladder or bowel , urinary retention, saddle anesthesia, foot drop or history of IV drug use. Patient reports pruritus in bilateral lower extremities and her left arm. Denies trauma. REVIEW OF SYSTEMS: GENERAL: Afebrile, denies any weakness RESPIRATORY: No cough, wheezing, or hemoptysis. CARDIAC: No chest pain or shortness of breath MUSCULOSKELETAL: Pain to right sided lower back. No point tenderness. SKIN : No erythema, no bruising, no deformity. +pruritus GI/: Denies any abdominal pain, no urinary difficulty, incontinence or urinary retention. RECTAL: Denies any difficulty this A.m. NEUROLOGICAL: Denies any numbness or tingling. No neurosensory deficits. PHYSICAL EXAM: GENERAL: The patient is awake, alert, and fully oriented, in no acute distress. RESPIRATORY: Lungs clear bilaterally, no rhonchi wheezes or crackles CARDIAC: S1-S2 audible, no murmur rub or gallop MUSCULOSKELETAL: Pain to generalized lower back. NVI. Less than 2 second cap refill, +2 pedal pulses. No spinal point tenderness. Normal reflexive and no deficits to sensation or strength. Point tenderness to right posterior hip. GI/: Abdomen soft, nontender, nondistended. No rebound tenderness. No masses palpable. RECTAL: Deferred patient with no neurological findings SKIN: Warm, Dry, normal turgor, no erythema, no edema no bruising. Past History - Past Medical History Allergies/Adverse Reactions: Allergies Allergy/AdvReac Type Severity Reaction Status Date / Time levofloxacin [Levofloxacin] Allergy Severe Hives Verified 04/14/18 16:02 methylprednisolone acetate Allergy Severe Swelling Verified 04/14/18 16:02 [From Depo-Medrol] Metronidazole HCl Allergy Severe Rash, Verified 04/14/18 16:02 [From Flagyl] itching Sulfa (Sulfonamide Allergy Severe Rash Verified 04/14/18 16:02 Antibiotics) lactose Allergy Mild STOMACH Verified 04/14/18 16:02 PAIN Home Medications: Ambulatory Orders Lipase/Protease/Amylase [Naomi Carrasco 24,000 Units Capsule] 1 each PO TID 08/16/16 Aspirin [ASA -] 81 mg PO DAILY 02/07/17 Exenatide Microspheres [Bydureon Pen] 2 mg SQ WEEKLY 05/11/17 Omeprazole 20 mg PO BID 05/11/17 Anemia: No Asthma: No Cancer: Yes Cardiac Disorders: No CVA: No COPD: No CHF: No DVT: No Dementia: No Diabetes: Yes GI Disorders: Yes (BENIGN 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-HAD WHIPPLE 2008,H/O COLON POLYPS) Disorders: No HTN: No Hypercholesterolemia: No Liver Disease: No Seizures: No Thyroid Disease: No - Surgical History Abdominal Surgery: Yes (HAD WHIPPLE 2008 DUE TO BENIGN 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) Appendectomy: No Cardiac Surgery: No Cholecystectomy: Yes Lung Surgery: No Neurologic Surgery: No Orthopedic Surgery: Yes (Bilateral rotated cuff Sx, both feet) - Immunization History Td Vaccination: Yes Immunization Up to Date: Yes - Suicide/Smoking/Psychosocial Hx Smoking Status: No Smoking History: Never smoked Years of Tobacco Use: 0 Have you smoked in the past 12 months: No Number of Cigarettes Smoked Daily: 0 Cigars Per Day: 0 Information on smoking cessation initiated: No Hx Alcohol Use: No Drug/Substance Use Hx: No Substance Use Type: None Hx Substance Use Treatment: No *Physical Exam - Vital Signs Last Vital Signs Temp Pulse Resp BP Pulse Ox 98.0 F 64 16 164/60 100 04/14/18 16:00 04/14/18 16:00 04/14/18 16:00 04/14/18 16:00 04/14/18 16:00 Moderate Sedation - Procedure Monitoring Vital Signs: Procedure Monitoring Vital Signs Temperature 98.0 F 04/14/18 16:00 Pulse Rate 64 04/14/18 16:00 Respiratory Rate 16 04/14/18 16:00 Blood Pressure 164/60 04/14/18 16:00 O2 Sat by Pulse Oximetry (%) 100 04/14/18 16:00 ED Treatment Course - LABORATORY CBC & Chemistry Diagram: 04/14/18 17:16 04/14/18 17:16 - ADDITIONAL ORDERS Additional order review: Laboratory Results 04/14/18 04/14/18 18:05 17:16 Sodium 138 Potassium 3.8 Chloride 104 Carbon Dioxide 28 Anion Gap 7 L BUN 14 Creatinine 0.6 Creat Clearance w eGFR > 60 Random Glucose 172 H Calcium 9.0 Total Bilirubin 1.9 H Direct Bilirubin 0.4 H AST 23 ALT 31 Alkaline Phosphatase 83 Total Protein 7.5 Albumin 4.2 04/14/18 17:16 RBC 4.62 MCV 92.3 MCHC 35.6 RDW 13.2 MPV 8.5 Neutrophils % 64.8 D Lymphocytes % 26.9 D Monocytes % 6.3 Eosinophils % 1.7 D Basophils % 0.3 - Medications Given in the ED: ED Medications Discontinued Medications Generic Name Dose Route Start Last Admin Trade Name Dario PRN Reason Stop Dose Admin Acetaminophen 975 mg 04/14/18 17:14 04/14/18 17:32 Tylenol - PO 04/14/18 17:15 975 mg ONCE ONE Administration Medical Decision Making - Medical Decision Making 04/14/18 18:54 A/P: 67-year-old woman history of pancreatic CA status post Whipple with lower back pain shooting down her left leg No spinal point tenderness present No palpable muscles spasms Point tenderness present over the right hip Full sensation noted distal to pain This patient has a significant history of panic reticulocyte CA status post Whipple I will collect basic labs including direct Bili to evaluate for her itching. Tylenol 975 orally now for pain Laboratory testing reveals elevated T bili of 1.9. Patient's previous T bili was 2.4 and direct bili is 0.4. Patient states relief of pain and itching sensation in her lower extremity. I will discharge the patient home to follow-up to primary doctor for continued evaluation as needed. *DC/Admit/Observation/Transfer Diagnosis at time of Disposition: Back pain Qualifiers: Back pain location: low back pain Chronicity: acute Back pain laterality: right Sciatica presence: with sciatica Sciatica laterality: sciatica of right side Qualified Code(s): M54.41 - Lumbago with sciatica, right side - Discharge Dispostion Disposition: HOME Condition at time of disposition: Stable Decision to Admit order: No - Referrals Referrals: Neel Fitzpatrick MD [Primary Care Provider] - - Patient Instructions Additional Instructions: Rest. Take Tylenol or Motrin as needed for pain. Follow manufacturers instructions for appropriate dosage. Warm moist heat applied to your back may help alleviate pain. Return to emergency department for numbness or tingling to the feet, genitals or rectum, worsening pain, or any other concerns. Thank you very much for choosing us to provide your emergent healthcare needs. - Post Discharge Activity
== END 2018-04-14 18:59 | disposition home or self-care (01) ==
LOC: JERFT 15:56
DX: M54.41 Lumbago with sciatica, right side (principal); Z85.07 Personal history of malignant neoplasm of pancreas; R17 Unspecified jaundice
CPT/HCPCS: 36415; 80053; 82248; 85025; 99281-25

== ENCOUNTER 2018-09-14 06:02 | Day surgery (SDC) | payer BC, MEDICARE ==
[2018-09-13 09:17] VITALS: BMI 28.5
[2018-09-14] MEDS ORDERED: ROPIVACAINE HCL 0.5% 30ML VIAL ONE (07:36)
[2018-09-14] MEDS ORDERED: MIDAZOLAM HCL 2 MG/2 ML SINGLE DOSE VIAL ONE ×2 (07:37)
[2018-09-14] MEDS ORDERED: LIDOCAINE HCL/PF 2% SDV 5ML VIAL ONE (08:07)
[2018-09-14] MEDS ORDERED: PROPOFOL 20 ML ONE (08:08)
--- NOTE | 2018-09-14 08:14 | HP ---
Satellite [facility] - Chief Complaint Chief Complaint: right shoulder pain - Past Medical History Allergies/Adverse Reactions: Allergies Allergy/AdvReac Type Severity Reaction Status Date / Time levofloxacin [Levofloxacin] Allergy Severe Hives Verified 09/14/18 06:35 methylprednisolone acetate Allergy Severe Swelling Verified 09/14/18 06:35 [From Depo-Medrol] Metronidazole HCl Allergy Severe Rash, Verified 09/14/18 06:35 [From Flagyl] itching Sulfa (Sulfonamide Allergy Severe Rash Verified 09/14/18 06:35 Antibiotics) lactose Allergy Mild STOMACH Verified 09/14/18 06:35 PAIN - Current Medications Current Medications: Home Medications Medication Instructions Recorded Lipase/Protease/Amylase [Creon Dr 1 each PO TID 08/16/16 24,000 Units Capsule] Aspirin [ASA -] 81 mg PO DAILY 02/07/17 Omeprazole 20 mg PO BID 05/11/17 Insulin Glargine,Hum.rec.anlog 40 unit SQ DAILY 09/13/18 [Lantus] Sitagliptin Phosphate [Januvia] 100 mg PO DAILY 09/13/18 Satellite Physical Exam - Physical Examination Vital Signs: Vital Signs Period Temp Pulse Resp BP Sys/Oakes Pulse Ox Last 24 Hr 98.1 F 70 16 139/69 99 General Appearance: Well Nourished, Well Developed, Alert & Oriented x3 ENT: Clear Lung: Normal air movement Heart: Regular rate & rhythm Extremities: Other (right shoulder- + ttp, decr rom, + empty can, +neer,+bhagat , nvi, MRI shows s/p previous RCR with re-tear) Neurological: Intact, Alert, Oriented Satellite Impression/Plan - Impression/Plan Impression: right shoulder s/p RCR with re-tear Operative Procedure: right shoulder arthroscopy with revision RCR Date to be Performed: 09/14/18
[2018-09-14] MEDS ORDERED: ceFAZolin SODIUM 1 GM VIAL IVPB ONE (08:20)
--- NOTE | 2018-09-14 09:25 | OP ---
Operative Note - Note: Operative Date: 09/14/18 ([facility]) Pre-Operative Diagnosis: right shoulder rct Operation: right shoulder arthroscopy with RCR, SAD, removal of loose body Implants: 3 arthrex swivelocks Post-Operative Diagnosis: Same as Pre-op Surgeon: Javi Resendez Skid Man: Wing Wild Anesthesiologist/JOURNEYMAN PRESSMAN: Victor Hugo Ernst Anesthesia: General, Local Specimens Removed: shavings, loose body Estimated Blood Loss (mls): 5 Operative Report Dictated: Yes
[2018-09-14] MEDS ORDERED: oxyCODONE HCL 5 MG TABLET PO PRN (09:34)
[2018-09-14] MEDS ORDERED: PROMETHAZINE HCL 25 MG/1 ML VIAL IVPB PRN (09:34)
[2018-09-14] MEDS ORDERED: ONDANSETRON 4 MG/2 ML VIAL IVPUSH PRN (09:34)
[2018-09-14] MEDS ORDERED: ceFAZolin SODIUM 1 GM VIAL ONE (10:22)
[2018-09-14] MEDS ORDERED: ePHEDrine SULFATE 50 MG/1 ML AMPULE ONE (10:52)
--- NOTE | 2018-09-14 11:28 | OP ---
DATE OF OPERATION: 09/14/2018 PREOPERATIVE DIAGNOSIS: Right rotator cuff tear. POSTOPERATIVE DIAGNOSIS: Right rotator cuff tear. PROCEDURE: Arthroscopy right shoulder, subacromial debridement, and arthroscopic right rotator cuff repair. SURGICAL ATTENDING: Javi Resendez MD INTERLINE CLERK: KERMIT Suazo ANESTHESIA: Regional and general. CLOSURE: Three SutureTapes with SwiveLoc anchor fixation for rotator cuff, 3-0 nylon for skin. ESTIMATED BLOOD LOSS: Negligible. COMPLICATIONS: None. CONDITION: Recovery room in stable condition. DESCRIPTION OF OPERATIVE PROCEDURE: The patient was taken to the operating room on September 14, 2018. Regional and general anesthesia were administered by the anesthesiologist. IV Kefzol was administered prophylactically prior to the case. The patient was placed in the beach chair position with all prominences well padded. Right shoulder area was prepped and draped in the usual sterile fashion. First, a diagnostic arthroscopy of the glenohumeral joint was performed. The posterior portal was made 2 fingerbreadths below the acromion 1st with a 15 blade followed by blunt trocar. Exam of the glenohumeral joint revealed the following: Intact glenoid and humeral head articular cartilage, intact labrum circumferentially, no loose bodies in the axillary pouch, biceps tendon was nonvisualized in the joint, subscapularis was intact to its insertion. Looking superiorly, the supraspinatus was found to be slightly attached. Gentle probing revealed no thickness to this tendon, although it did have some insertion near its greater tuberosity. This area was marked by a suture. The fluid was drained from the shoulder. Trocar was removed. The posterior trocar was redirected in the subacromial space. An accessory lateral portal was then made with a 15 blunt trocar. Bursectomy in the subacromial space was removed. There was a fragment of loose bone anteriorly near the acromion. This was debrided. The residual acromion was flush. Did not need to be further debrided with no spurs. Debridement of soft tissue in this area revealed the rotator cuff beneath. The probing of the rotator cuff revealed that it had healed with scar tissue but had no thickness to it. This was debrided with a shaver, which ate away the primitive healing of the rotator cuff. There was a large greater tuberosity spur, which was debrided using the shaver and the bur. The edge of the rotator cuff was cleaned with the shaver exposing healthy rotator cuff tendon. Multiple horizontal mattress sutures with SutureTape were placed anterior to posterior. They were each fixated with SwiveLock anchors through more lateral position matting down the rotator cuff to the raw surface of bone that was burred. Sutures were cut flush with the bone. Probing revealed excellent fixation of the rotator cuff. Range of motion revealed excellent clearance in the subacromial space. Fluid was drained from the shoulder. Trocars were removed. Portals were closed using 3-0 nylon horizontal mattress. Sterile pressure dressing was applied followed by a shoulder immobilizer. The patient was awakened from anesthesia and transferred to the recovery room in stable condition. No complications. Estimated blood loss negligible. Jessa [id number]
[2018-09-14 12:00] LABS: BASO % 0.2 % (0-2.0); EOS % 1.2 % (0-4.5); HEMATOCRIT 38.4 % (32.4-45.2); HEMOGLOBIN 12.7 GM/dL (10.7-15.3); LYMPH % 18.3 % (8-40); MCH 31.8 pg (25.7-33.7); MCHC 33.1 g/dl (32.0-36.0); MEAN PLT VOLUME 8.5 fl (7.5-11.1); MONO % 6.9 % (3.8-10.2); NEUT % 73.4 % (42.8-82.8); PLATELET COUNT 280 K/MM3 (134-434); RDW 13.2 % (11.6-15.6)
[2018-09-14 12:06] LABS: INR 1.09 (0.83-1.09); PROTHROMBIN TIME (PATIENT) 12.9 SEC (9.7-13.0)
[2018-09-14 12:09] LABS: ACTIVATED PTT 31.2 SECONDS (25.2-36.5)
[2018-09-14 12:22] LABS: ALK PHOS 53 U/L (45-117); ANION GAP 5 MMOL/L (8-16); BILIRUBIN,TOTAL 0.6 mg/dL (0.2-1); BLOOD UREA NITROGEN 18 mg/dL (7-18); CALCIUM 7.7 mg/dL (8.5-10.1); CHLORIDE 106 mmol/L (98-107); CO2 28 mmol/L (21-32); CREATININE 0.5 mg/dL (0.55-1.3); GLUCOSE,RANDOM 160 mg/dL (74-106); POTASSIUM 3.6 mmol/L (3.5-5.1); SGOT/AST 15 U/L (15-37); SGPT/ALT 24 U/L (13-61); SODIUM 139 mmol/L (136-145); TOT PROT 5.3 g/dl (6.4-8.2)
--- NOTE | 2018-09-14 12:23 | EKG ---
Test Reason : Blood Pressure : / mmHG Vent. Rate : 066 BPM Atrial Rate : 066 BPM P-R Int : 140 ms QRS Dur : 084 ms QT Int : 444 ms P-R-T Axes : 062 -23 023 degrees QTc Int : 465 ms NORMAL SINUS RHYTHM NONSPECIFIC T WAVE ABNORMALITY ABNORMAL ECG WHEN COMPARED WITH ECG OF 11-MAY-2017 16:07, VENT. RATE HAS DECREASED BY 35 BPM Confirmed by GHANSHYAM ROSE, ADI ([id number]) on 09/14/2018 12:22:47 PM Referred By: Javi Resendez Confirmed By:ADI MORRISSEY MD
--- NOTE | 2018-09-14 13:44 | CON.CARD ---
Consult Consult Specialty:: Cardiology Referred by:: Nanette Reason for Consultation:: bradycardia - History of Present Illness Chief Complaint: bradycardia History of Present Illness: She is a 68 year old woman with a history of diabetes, benign pancreatic lesion s/p whipple 2010, cholecystectomy, multiple orthopedic procedures, who is s/p right shoulder surgery, seen in PACU for bradycardia. She had surgery under local block, felt nauseated in PACU, did not vomit. After the nausea started she became briefly bradycardic to 20's, without LOC. Given 0.5 mg atropine with prompt response. Denies chest pain, sob, orthopnea, pnd or edema. Baseline exercise tolerance is good. - History Source History Provided By: Patient, Medical Record - Alcohol/Substance Use Hx Alcohol Use: No - Smoking History Smoking history: Never smoked Have you smoked in the past 12 months: No Aproximately how many cigarettes per day: 0 Home Medications - Allergies Allergies/Adverse Reactions: Allergies Allergy/AdvReac Type Severity Reaction Status Date / Time levofloxacin [Levofloxacin] Allergy Severe Hives Verified 09/14/18 06:35 methylprednisolone acetate Allergy Severe Swelling Verified 09/14/18 06:35 [From Depo-Medrol] Metronidazole HCl Allergy Severe Rash, Verified 09/14/18 06:35 [From Flagyl] itching Sulfa (Sulfonamide Allergy Severe Rash Verified 09/14/18 06:35 Antibiotics) lactose Allergy Mild STOMACH Verified 09/14/18 06:35 PAIN - Home Medications Home Medications: Ambulatory Orders Lipase/Protease/Amylase [Creon Dr 24,000 Units Capsule] 1 each PO TID 08/16/16 Aspirin [ASA -] 81 mg PO DAILY 02/07/17 Omeprazole 20 mg PO BID 05/11/17 Insulin Glargine,Hum.rec.anlog [Lantus] 40 unit SQ DAILY 09/13/18 Sitagliptin Phosphate [Januvia] 100 mg PO DAILY 09/13/18 Oxycodone HCl/Acetaminophen [Percocet 5-325 mg Tablet] 1 - 2 tab PO Q6H #30 tab MDD 6 09/14/18 Family Disease History - Family Disease History Family History: Denies Review of Systems - Review of Systems Constitutional: reports: No Symptoms Eyes: reports: No Symptoms HENT: reports: No Symptoms Neck: reports: No Symptoms Cardiovascular: reports: No Symptoms Respiratory: reports: No Symptoms Gastrointestinal: reports: Nausea Genitourinary: reports: No Symptoms - Risk Factors Known Risk Factors: Yes: Diabetes Mellitus Vital Signs: Vital Signs Temperature 97.7 F 09/14/18 09:26 Pulse Rate 60 09/14/18 12:45 Respiratory Rate 18 09/14/18 12:45 Blood Pressure 132/61 09/14/18 12:45 O2 Sat by Pulse Oximetry (%) 99 09/14/18 12:45 Constitutional: Yes: No Distress, Calm Eyes: Yes: Conjunctiva Clear, EOM Intact HENT: Yes: Atraumatic, Normocephalic Neck: Yes: Supple, Trachea Midline Respiratory: Yes: CTA Bilaterally Gastrointestinal: Yes: Normal Bowel Sounds, Soft Cardiovascular: Yes: Regular Rate and Rhythm JVD: No Carotid Bruit: No PMI: Non-Displaced Heart Sounds: Yes: S1, S2 Extremities: Yes: WNL Edema: No Peripheral Pulses WNL: Yes Neurological: Yes: Alert, Oriented - Other Data Labs, Other Data: CBC, BMP 09/14/18 11:26 09/14/18 11:26 INR, PTT INR 1.09 (0.83-1.09) 09/14/18 11:26 Troponin, BNP 09/14/18 11:26 Troponin I < 0.02 Troponin, BNP 09/14/18 11:26 Troponin I < 0.02 Imaging - Results EKG: Report Reviewed (nsr nssttw changes tele brief sabino normal intervals.) Assessment/Plan She is a 68 year old woman with a history of diabetes, benign pancreatic lesion s/p whipple 2010, cholecystectomy, multiple orthopedic procedures, who is s/p right shoulder surgery, seen in PACU for bradycardia. She had surgery under local block, felt nauseated in PACU, did not vomit. After the nausea started she became briefly bradycardic to 20's, without LOC. Given 0.5 mg atropine with prompt response. Denies chest pain, sob, orthopnea, pnd or edema. Baseline exercise tolerance is good. Sinus bradycardia --likely vagal response postop to anesthesia. --this is benign given unremarkable QRS duration and normal intervals, even while sabino. --no need for treatment. --dc home per orthopedics.
[2018-09-14] MEDS ORDERED: ONDANSETRON 4 MG/2 ML VIAL ONE (14:15)
[2018-09-14] MEDS ORDERED: ONDANSETRON 4 MG/2 ML VIAL IVPUSH ONE (14:20)
[2018-09-14 14:24] VITALS: TEMP 97.5
[2018-09-14 16:16] VITALS: BP 125/58; PULSE 65
--- NOTE | 2018-09-17 11:09 | PATH ---
Surgical Pathology Report Patient Name: ALBINA CREWS [facility]. Rec. #: [id number] /Age/Gender: 1950 (Age: 68) / F Account: [id number] Location: [facility] Taken: 09/14/2018 Received: 09/14/2018 Reported: 09/17/2018 Physicians: Javi Resendez M.D. Specimen(s) Received RIGHT SHOULDER SHAVINGS Clinical History Impingement syndrome right shoulder Final Diagnosis RIGHT SHOULDER, ARTHROSCOPIC SHAVING: PORTIONS OF SYNOVIUM, CARTILAGE, SKELETAL MUSCLE AND BONE CONSISTENT WITH ARTHROSCOPIC SHAVINGS. Electronically Signed Torres Conner M.D. Gross Description Received in formalin, labeled "right shoulder shavings," is a 4.5 x 4.5 x 0.8 cm. aggregate of bermudez-yellow soft tissue fragments. A business services sales representative portion is submitted in one cassette. /09/14/201809/14/2018
== END 2018-09-14 16:10 | disposition home or self-care (01) ==
LOC: JASU-SURG 06:02
PROVIDERS: ATTEND Orthopaedic Surgery
PROC: 0LQ14ZZ Repair Right Shoulder Tendon, Percutaneous Endoscopic Approach (ICD-10-PCS; principal; 2018-09-14 08:00)
PROC: 0RBJ4ZZ Excision of Right Shoulder Joint, Percutaneous Endoscopic Approach (ICD-10-PCS; 2018-09-14 08:00)
DX: M75.101 Unspecified rotator cuff tear or rupture of right shoulder, not specified as traumatic (principal); E11.9 Type 2 diabetes mellitus without complications
CPT/HCPCS: 36415; 80053; 82550; 82962; 84484; 85025; 85610; 85730; 88304-TC; 93005; 93010; 94760

== ENCOUNTER 2023-07-04 05:10 | Day surgery (SDC) | payer OTHER ==
[2023-06-30 15:20] VITALS: BMI 31.1
[2023-07-04] MEDS ORDERED: LIDOCAINE HCL/PF 1% SDV 5ML VIAL ONE (07:21)
[2023-07-04 10:58] VITALS: RESP 20
[2023-07-04] MEDS: LIDOCAINE HCL 1% PRESERVATIVE FREE - 30ML VIAL IJ ONE ×2 (12:36)
[2023-07-04] MEDS: IOHEXOL 180 MG/1 ML ML IJ ONE ×2 (12:41)
[2023-07-04] MEDS: DEXAMETHASONE SOD PHOSPHATE 10 MG/1 ML VIAL IM ONE ×2 (12:42)
[2023-07-04] MEDS: ACETAMINOPHEN 500 MG TABLET (FP) PO PRN (13:14)
[2023-07-04] MEDS ORDERED: ACETAMINOPHEN 500 MG TABLET (FP) ONE (13:15)
[2023-07-04 14:31] VITALS: BP 160/76; PULSE 76; TEMP 98
== END 2023-07-04 13:30 | disposition home or self-care (01) ==
LOC: JASU-SURG 05:10
PROVIDERS: ATTEND Pain Medicine Pain Medicine
PROC: 3E0R3BZ Introduction of Anesthetic Agent into Spinal Canal, Percutaneous Approach (ICD-10-PCS; 2023-07-04)
PROC: 3E0R33Z Introduction of Anti-inflammatory into Spinal Canal, Percutaneous Approach (ICD-10-PCS; principal; 2023-07-04 12:15)
DX: M54.16 Radiculopathy, lumbar region (principal)
CPT/HCPCS: 76000-TC-FY; J1100

== ENCOUNTER 2023-07-06 02:33 | Emergency (ER) | payer OTHER ==
[2023-07-06 02:48] VITALS: BMI 31.1
[2023-07-06] MEDS ORDERED: morphine SULFATE 4 MG/ML VIAL ONE (03:35)
[2023-07-06] MEDS: morphine CARPU-JECT 4 MG/1 ML DISP.SYRIN IVPUSH ONE (03:37)
[2023-07-06 04:05] LABS: BASO % 0.1 % (0-2.0); EOS % 0.6 % (0-4.5); HEMATOCRIT 40.1 % (32.4-45.2); HEMOGLOBIN 13.8 GM/dL (10.7-15.3); INR 1.05 (0.83-1.09); LYMPH % 24.9 % (8-40); MCH 31.5 pg (25.7-33.7); MCHC 34.5 g/dl (32.0-36.0); MEAN CELL VOLUME 91.4 fl (80-96); MEAN PLT VOLUME 8.5 fl (7.5-11.1); MONO % 7.9 % (3.8-10.2); NEUT % 66.5 % (42.8-82.8); PLATELET COUNT 351 10^3/uL (134-434); PROTHROMBIN TIME (PATIENT) 12.2 SEC (9.7-13.0); RBC 4.39 M/mm3 (3.60-5.2); RDW 13.3 % (11.6-15.6); WHITE BLOOD COUNT 10.9 K/mm3 (4.0-10.0)
[2023-07-06 04:08] LABS: ACTIVATED PTT 30.8 SECONDS (25.2-36.5)
[2023-07-06 04:17] LABS: POTASSIUM 4.1 mmol/L (3.5-5.1)
[2023-07-06 04:19] LABS: CALCIUM 9.4 mg/dL (8.5-10.1)
[2023-07-06 04:20] LABS: ALBUMIN 3.8 g/dl (3.4-5.0); BLOOD UREA NITROGEN 28.9 mg/dL (7-18)
[2023-07-06 04:23] LABS: CREATININE 0.7 mg/dL (0.55-1.3)
[2023-07-06 04:25] LABS: BILIRUBIN,TOTAL 0.5 mg/dL (0.2-1); TOT PROT 6.8 g/dl (6.4-8.2)
[2023-07-06] MEDS: SODIUM CHLORIDE 0.9% 500 ML INFUS.BAG IV ONE (07:27)
[2023-07-06] MEDS ORDERED: LIDOCAINE 4% PATCH TP ONE (08:25)
[2023-07-06] MEDS ORDERED: ACETAMINOPHEN INJECTION 100 ML IVPB ONE (08:25)
[2023-07-06] MEDS ORDERED: KETOROLAC TROMETHAMINE 15 MG/ML VIAL ONE (08:25)
[2023-07-06] MEDS: KETOROLAC TROMETHAMINE 15 MG/ML VIAL IVPUSH ONE (08:32)
[2023-07-06] MEDS: LIDOCAINE 5% TOPICAL PATCH TP ONE (08:32)
[2023-07-06] MEDS: ACETAMINOPHEN 1000 MG/100 ML BAG IVPB ONE (08:32)
[2023-07-06 09:34] VITALS: RESP 19; TEMP 98
[2023-07-06] MEDS ORDERED: oxyCODONE HCL 5 MG TABLET ONE (11:46)
[2023-07-06] MEDS: oxyCODONE HCL 5 MG TABLET PO ONE (12:09)
[2023-07-06 13:17] VITALS: BP 138/80; PULSE 75
[2023-07-06] MEDS ORDERED: LIDOCAINE PATCH REMOVAL MC ONE (22:00)
== END 2023-07-06 13:16 | disposition home or self-care (01) ==
LOC: JER 02:33
PROC: 3E030NZ Introduction of Analgesics, Hypnotics, Sedatives into Peripheral Vein, Open Approach (ICD-10-PCS; principal; 2023-07-06)
PROC: 3E0303Z Introduction of Anti-inflammatory into Peripheral Vein, Open Approach (ICD-10-PCS; 2023-07-06)
PROC: 3E030NZ Introduction of Analgesics, Hypnotics, Sedatives into Peripheral Vein, Open Approach (ICD-10-PCS; 2023-07-06)
DX: M79.652 Pain in left thigh (principal); M54.50 Low back pain, unspecified; G89.29 Other chronic pain; M25.552 Pain in left hip
CPT/HCPCS: 36415; 72131-TC; 72148-TC; 72192-TC; 80053; 82962; 83735; 85025; 85610; 85730; 86850; 86900; 86901; 99284-25; J0131

== ENCOUNTER 2023-07-25 03:59 | Day surgery (SDC) | payer OTHER ==
[2023-07-20 19:04] VITALS: BMI 31.1
[2023-07-25] MEDS ORDERED: LIDOCAINE HCL/PF 1% SDV 5ML VIAL ONE (07:13)
[2023-07-25] MEDS ORDERED: DEXAMETHASONE SOD PHOSPHATE 10 MG/1 ML VIAL ONE (07:14)
[2023-07-25] MEDS ORDERED: SODIUM CHLORIDE 0.9% P/F 10 ML VIAL IJ ONE (07:14)
[2023-07-25] MEDS ORDERED: LIDOCAINE HCL/PF 2% SDV 5ML VIAL ONE (07:22)
[2023-07-25] MEDS: IOHEXOL 180 MG/1 ML ML IJ ONE (08:37)
[2023-07-25] MEDS: LIDOCAINE HCL 1% PRESERVATIVE FREE - 30ML VIAL IJ ONE ×2 (08:38)
[2023-07-25] MEDS: DEXAMETHASONE SOD PHOSPHATE 10 MG/1 ML VIAL IVPUSH ONE (08:39)
[2023-07-25] MEDS ORDERED: ACETAMINOPHEN 500 MG TABLET (FP) ONE (09:00)
[2023-07-25 10:16] VITALS: BP 159/73; PULSE 68; RESP 17; TEMP 97.9
[2023-07-25] MEDS ORDERED: ACETAMINOPHEN 500 MG TABLET (FP) PO PRN (10:24)
== END 2023-07-25 09:42 | disposition home or self-care (01) ==
LOC: JASU-SURG 03:59
PROVIDERS: ATTEND Pain Medicine Pain Medicine
PROC: 3E0R3BZ Introduction of Anesthetic Agent into Spinal Canal, Percutaneous Approach (ICD-10-PCS; 2023-07-25)
PROC: 3E0R33Z Introduction of Anti-inflammatory into Spinal Canal, Percutaneous Approach (ICD-10-PCS; principal; 2023-07-25 08:30)
DX: M54.16 Radiculopathy, lumbar region (principal)
CPT/HCPCS: 76000-TC-FY; 82962; J1100

== ENCOUNTER 2023-11-25 17:32 | Emergency (ER) | payer OTHER ==
[2023-11-25 17:50] VITALS: BP 177/89; PULSE 78; RESP 18; TEMP 98.4; BMI 31.1
[2023-11-25] MEDS ORDERED: ACETAMINOPHEN 500 MG TABLET (FP) ONE (18:25)
[2023-11-25] MEDS: ACETAMINOPHEN 500 MG TABLET (FP) PO ONE (18:40)
== END 2023-11-25 19:29 | disposition home or self-care (01) ==
LOC: JERFT 17:32
DX: S93.401A Sprain of unspecified ligament of right ankle, initial encounter (principal); W01.0XXA Fall on same level from slipping, tripping and stumbling without subsequent striking against object, initial encounter
CPT/HCPCS: 73610-TC-RT-FY; 73630-TC-RT-FY; 99283-25